=== PATIENT | female | born 1955 | race Caucasian/White ===

== ENCOUNTER 2018-04-13 12:36 | Emergency (ER) | payer MEDICARE ==
[~2018-04-13] VITALS: Ht 167.6 cm; Wt 76.2 kg
[2018-04-13 12:46] VITALS: BP 156/78
[2018-04-13] MEDS ORDERED: KETOROLAC 60 MG/2 ML INJ. IM ONE (13:30)
[2018-04-13] MEDS ORDERED: DEXAMETHASONE SOD PHOS 20 MG/5 ML VIAL. IV ONE (14:00)
[2018-04-13] MEDS ORDERED: KETOROLAC 30 MG/ML VIAL. IV ONE (14:00)
--- NOTE | 2018-04-13 14:42 | PHYS DOC ---
Past Medical History Past Medical History: Anxiety, Arthritis, Bipolar, Depression, High Cholesterol , Hypertension, Stroke, Other Additional Past Medical Histor: chronic back pain, back fractures,osteoperosis Past Surgical History: No Surgical History Additional Information: 1/2 ppd Alcohol Use: None Drug Use: None Adult General Chief Complaint Chief Complaint: BACK PAIN - NO INJURY HPI HPI Patient is a 62 year old female with a history of hypertension, high cholesterol, bipolar, depression, CVA, who presents today complaining of 10 out of 10 chronic mid to low back pain. Patient denies any new injury, she states she has history of compression fractures to her thoracic spine. She states she follows up with her own specialist to her as her own hydrocodone. Patient states for the last 2 days she's not been able to take her hydrocodone because she feels they get stuck in her throat. Patient appears very sleepy. Denies any injury. Denies any pain radiating to bilateral lower extremities. Denies any loss of bowel bladder function. By EMS reportedly found to 2 empty bottles of Tramdol next to patient. When they inquired from patient if she was taking tramadol, she states those are her mother's pills. Patient tells me in the ED should like something for pain. She states she would like an x-ray of her neck to make sure there is no food stuck/pill in her neck. She is able to tolerate her secretions in the ED with difficulties. Review of Systems Review of Systems Constitutional: Denies fever or chills [] Eyes: Denies change in visual acuity, redness, or eye pain [] HENT: Reports food bolus sensation Denies nasal congestion or sore throat [] Respiratory: Denies cough or shortness of breath [] Cardiovascular: No additional information not addressed in HPI [] GI: Denies abdominal pain, nausea, vomiting, bloody stools or diarrhea [] : Denies dysuria or hematuria [] Musculoskeletal: Reports chronic thoracic and lumbar spine pain Integument: Denies rash or skin lesions [] Neurologic: Denies headache, focal weakness or sensory changes [] All other systems were reviewed and found to be within normal limits, except as documented in this note. Current Medications Current Medications Current Medications Medications (Trade) Dose Ordered Sig/Charo Start Time Stop Time Status Last Admin Dose Admin Dexamethasone Sodium Phosphate (Decadron) 10 mg 1X ONCE 04/13/18 14:00 04/13/18 14:04 DC 04/13/18 14:12 10 MG Ketorolac Tromethamine (Toradol 30mg Vial) 30 mg 1X ONCE 04/13/18 14:00 04/13/18 14:04 DC 04/13/18 14:12 30 MG Ketorolac Tromethamine (Toradol Im) 60 mg 1X ONCE 04/13/18 13:30 04/13/18 14:00 DC Allergies Allergies Allergies Coded Allergies Type Severity Reaction Last Updated Verified tetanus toxoid, adsorbed Allergy Severe lip and tongue swelling 04/13/18 Yes Physical Exam Physical Exam Constitutional: Well developed, well nourished, no acute distress, non-toxic appearance. [] HENT: Normocephalic, atraumatic, bilateral external ears normal, oropharynx moist, no oral exudates, nose normal. [] Eyes: PERRLA, EOMI, conjunctiva normal, no discharge. [] Neck: Normal range of motion, no tenderness, supple, no stridor. [] Cardiovascular:Heart rate regular rhythm, no murmur [] Lungs & Thorax: Bilateral breath sounds clear to auscultation [] Abdomen: Bowel sounds normal, soft, no tenderness, no masses, no pulsatile masses. [] Skin: Warm, dry, no erythema, no rash. [] Back: No tenderness, no CVA tenderness. [] Extremities: Scoliosis noted to thoracic spine paraspinal muscle tenderness diffusely to thoracic and lumbar spine, no obvious midline lumbar spine or thoracic spine tenderness, no cyanosis, no clubbing, ROM intact, no edema. [] Neurologic: Alert and oriented X 3, normal motor function, normal sensory function, no focal deficits noted. [] Psychologic: Flat affect, appears sleepy but arousable Current Patient Data Vital Signs Vital Signs Date Time Temp Pulse Resp B/P (MAP) Pulse Ox O2 Delivery O2 Flow Rate FiO2 04/13/18 13:43 66 18 129/83 (98) 97 Room Air 04/13/18 12:46 98.0 98.0 EKG EKG [] Radiology/Procedures Radiology/Procedures [] Course & Med Decision Making Course & Med Decision Making Pertinent Labs and Imaging studies reviewed. (See chart for details) This is a 62-year-old female patient presenting to the ED today with chronic mid and low back pain. Also complaining of sensation of food bolus that she is tolerating her secretions well. Patient requesting x-rays of her neck. Also requesting pain medicine. She appears sleepy in the ED but wakes up and talks. Ktracs shows she received 120 tablets of [place] on 04/09/2018, 30 day supply. Offered her Toradol for pain, informed by the nurse patient refused stating the last time she had Toradol and it gave her a bump on her buttock. She has an IV. I requested a Toradol to be switched to IV. Also offered Decadron. She signed AMA. Dragon Disclaimer Dragon Disclaimer This electronic medical record was generated, in whole or in part, using a voice recognition dictation system. Departure Departure Impression: Primary Impression: Chronic mid back pain Additional Impression: Chronic low back pain Disposition: 07 AGAINST MEDICAL ADVICE Condition: STABLE Referrals: NICKIE MUÑIZ MD (PCP) Problem Qualifiers Primary Impression: Chronic mid back pain Back pain laterality: bilateral Qualified Codes: M54.6 - Pain in thoracic spine; G89.29 - Other chronic pain Additional Impression: Chronic low back pain Back pain laterality: bilateral Sciatica presence: without sciatica Qualified Codes: M54.5 - Low back pain; G89.29 - Other chronic pain INNA DEL ROSARIO APRN Apr 13, 2018 14:42
== END 2018-04-13 14:29 | disposition left against medical advice (07) ==
LOC: ER 12:36
DX: G89.29 Other chronic pain (principal); M54.5 Low back pain; M54.6 Pain in thoracic spine; F41.9 Anxiety disorder, unspecified; F31.9 Bipolar disorder, unspecified; M19.90 Unspecified osteoarthritis, unspecified site; E78.00 Pure hypercholesterolemia, unspecified; I10 Essential (primary) hypertension; F17.200 Nicotine dependence, unspecified, uncomplicated
CPT/HCPCS: 96374; 96375; 99284; J1100; J1885